=== PATIENT | female | born 1980 | race Two or more races ===

== ENCOUNTER → 2018-03-17 | Outpatient (CLI) | payer BC ==
--- NOTE | 2018-03-17 12:32 | RADIOLOGY REPORT (SQ) ---
EXAM DESCRIPTION: U/S ABDOMEN COMPLETE W/DOPPLER COMPLETED DATE/TIME: 03/17/2018 9:45 am REASON FOR STUDY: LLQ ABDOMINAL SWELLING, MASS, AND LUMP R19.04 LEFT LOWER QUADRANT ABDOMINAL SWELL ING, MASS AND LUMP COMPARISON: None. TECHNIQUE: Dynamic and static grayscale images acquired of the abdomen and recorded on PACS. Additio nal selected color Doppler and spectral images recorded. LIMITATIONS: Midline bowel gas, body habitus FINDINGS: PANCREAS: Not well seen LIVER: Difficult to visualize, normal size. No gross masses. LIVER VASCULATURE: Normal directional flow of the main portal vein and hepatic veins. GALLBLADDER: Stones are present without gallbladder wall thickening or pericholecystic fluid. ULTRASOUND-DETECTED HALL'S SIGN: Negative. INTRAHEPATIC DUCTS AND COMMON DUCT: Common bile duct not well seen. No gross intrahepatic biliary du ctal dilatation INFERIOR VENA CAVA: Not well seen AORTA: No aneurysm. RIGHT KIDNEY: Normal size. Normal echogenicity. No solid or suspicious masses. No hydronephros is. No calcifications. LEFT KIDNEY: Normal size. Normal echogenicity. No solid or suspicious masses. No hydronephrosi s. No calcifications. SPLEEN: Normal size. No solid masses. PERITONEAL AND PLEURAL SPACES: No ascites or effusions. OTHER: Patient indicated a left lower quadrant mass. Ultrasound of the left lower quadrant demonstra gracy a 12 cm hypoechoic solid mass. This is possibly uterine fibroid or ovarian mass. Findings were discussed with Jamila Mattson 0930 hours, 03/17/2018. CT will be performed for follow-up, with oral a nd IV contrast. IMPRESSION: Mass in the left lower quadrant at least 12 cm in diameter, question ovarian mass versus uterine fibroid versus pelvic adenopathy. TECHNICAL DOCUMENTATION: JOB ID: [id number] [employer]- All Rights Reserved Reading location - IP/workstation name: [email or web address]
--- NOTE | 2018-03-17 13:47 | RADIOLOGY REPORT (SQ) ---
EXAM DESCRIPTION: CT ABD/PELVIS WITH IV ORAL COMPLETED DATE/TIME: 03/17/2018 1:10 pm REASON FOR STUDY: LLQ ABDOMINAL MASS R19.04 LEFT LOWER QUADRANT ABDOMINAL SWELLING, MASS AND LUMP COMPARISON: None. TECHNIQUE: CT scan of the abdomen and pelvis performed using helical scanning technique with dynamic intravenous contrast injection. Patient drank oral contrast. Images reviewed with lung, soft tissue , and bone windows. Reconstructed coronal and sagittal MPR images reviewed. Delayed images for evalua tion of the urinary system also acquired. All images stored on PACS. All CT scanners at this facility use dose modulation, iterative reconstruction, and/or weight based d osing when appropriate to reduce radiation dose to as low as reasonably achievable (ALARA). [facility]: Dose Right [facility]: CareDose [facility]: Dose Right [facility]: Teradose 4D [facility]: [employer] CONTRAST TYPE AND DOSE: contrast/concentration: Isovue 370.00 mg/ml; Total Contrast Delivered: 100.0 ml; Total Saline Delivered: 39.1 ml RENAL FUNCTION: None required. The patient is less than 50 years old. RADIATION DOSE: CT Rad equipment meets quality standard of care and radiation dose reduction techniq ues were employed. CTDIvol: 22.4 - 23.4 mGy. DLP: 2337 mGy-cm.. LIMITATIONS: None. FINDINGS: LOWER CHEST: No significant findings. No nodules or infiltrates. LIVER: Normal size. No masses. No dilated ducts. SPLEEN: Normal size. No focal lesions. PANCREAS: No masses. No significant calcifications. No adjacent inflammation or peripancreatic fluid collections. Pancreatic duct not dilated. GALLBLADDER: No identified stones by CT criteria. No inflammatory changes to suggest cholecystitis. ADRENAL GLANDS: No significant masses or asymmetry. RIGHT KIDNEY AND URETER: No solid masses. No significant calcifications. No hydronephrosis or hyd roureter. LEFT KIDNEY AND URETER: No solid masses. No significant calcifications. No hydronephrosis or hydr oureter. AORTA AND VESSELS: No aneurysm. No dissection. Renal arteries, SMA, celiac without stenosis. RETROPERITONEUM: No retroperitoneal adenopathy, hemorrhage or masses. BOWEL AND PERITONEAL CAVITY: No masses or inflammatory changes. No free fluid or peritoneal masses. APPENDIX: Normal. PELVIS: Uterus is enlarged, 17 x 16 x 11 cm in size. In the leftward uterine fundus, a 14 x 11 cm fi broid is present which correlates with ultrasound earlier today. Ovaries not enlarged. No free pelv ic fluid. No pelvic adenopathy. No free fluid. Normal bladder. ABDOMINAL WALL: No masses. No hernias. BONES: No significant or acute findings. OTHER: No other significant finding. IMPRESSION: Enlarged fibroid uterus correlates with ultrasound from earlier today. No acute findings TECHNICAL DOCUMENTATION: JOB ID: [id number] Quality ID # [id number]: Final reports with documentation of one or more dose reduction techniques (e.g., Au tomated exposure control, adjustment of the mA and/or kV according to patient size, use of iterative reconstruction technique) 2010 [employer]- All Rights Reserved Reading location - IP/workstation name: [email or web address]
== END ==
LOC: RAD 08:55
PROVIDERS: ATTEND Physician Assistant
DX: D25.9 Leiomyoma of uterus, unspecified (principal)
CPT/HCPCS: 74177; 76700; 93976

== ENCOUNTER 2018-04-07 08:28 | Emergency (ER) | payer BC ==
[2018-04-07] MEDS ORDERED: OXYCODONE-ACETAMINOPHEN 5-325 MG TABLET PO ONE (09:07)
[2018-04-07] MEDS ORDERED: ONDANSETRON 4 MG TAB.RAPDIS PO ONE (09:07)
--- NOTE | 2018-04-07 09:09 | ER Document Report ---
ED Medical Screen (RME) - General Mode of Arrival: Ambulatory Information source: Patient TRAVEL OUTSIDE OF THE [place] IN LAST 30 DAYS: No - HPI Onset: This morning <VASU BEAVER - Last Filed: 04/07/18 09:08> <AUDREY COATS - Last Filed: 04/07/18 12:00> - General Chief Complaint: Abdominal Pain Stated Complaint: ABDOMINAL PAIN Time Seen by Provider: 04/07/18 09:02 Notes: Patient presents to the emergency department with complaints of severe abdominal pain and nausea that started this morning.. Reports right upper quadrant radiating down into her right pelvic region. Complains of nausea and severe pain. Denies vomiting diarrhea. Denies trauma. Patient reports history of fibroids and history of gallstones. I have greeted and performed a rapid initial assessment of this patient. A comprehensive ED assessment and evaluation of the patient, analysis of test results and completion of the medical decision making process will be conducted by additional ED providers. (VASU BEAVER) - Vital signs Vitals: Temp Pulse Resp BP Pulse Ox 98.7 F 78 16 136/74 H 99 04/07/18 08:43 04/07/18 08:43 04/07/18 08:43 04/07/18 08:43 04/07/18 08:43 Course - Laboratory Result Diagrams: 04/07/18 09:59 04/07/18 09:59 <AUDREY COATS - Last Filed: 04/07/18 12:00> - Vital Signs Vital signs: Temp Pulse Resp BP Pulse Ox 98.1 F 73 16 138/78 H 96 04/07/18 11:38 04/07/18 11:38 04/07/18 11:38 04/07/18 11:38 04/07/18 11:38 - Laboratory Laboratory results interpreted by me: 04/07/18 09:59 WBC 10.8 H Hgb 16.0 H Doctor's Discharge <VASU BEAVER - Last Filed: 04/07/18 09:08> <AUDREY COATS - Last Filed: 04/07/18 12:00> - Discharge Clinical Impression: Uterine fibroid Qualifiers: Uterine leiomyoma location: unspecified location Qualified Code(s): D25.9 - Leiomyoma of uterus, unspecified Condition: Stable Disposition: HOME, SELF-CARE Additional Instructions: rest, take meds as prescribed, return if worse Prescriptions: Diclofenac Sodium [Voltaren] 75 mg PO BID #14 tablet. Etodolac [Lodine] 400 mg PO BID #14 tablet Etodolac [Lodine] 400 mg PO BID #14 tablet Etodolac [Lodine] 400 mg PO BID #14 tablet Etodolac [Lodine] 400 mg PO BID #14 tablet Tramadol HCl 50 mg PO BID #14 tablet Referrals: DEEPTI YE PA [PHYSICIAN ADMINISTRATIVE SERVICES MANAGER] - Follow up as needed
--- NOTE | 2018-04-07 10:11 | RADIOLOGY REPORT (SQ) ---
EXAM DESCRIPTION: U/S ABDOMEN LIMITED W/O DOP COMPLETED DATE/TIME: 04/07/2018 9:58 am REASON FOR STUDY: ruq radiating to right pelvic COMPARISON: None. TECHNIQUE: Dynamic and static grayscale images acquired of the abdomen and recorded on PACS. Additio nal selected color Doppler and spectral images recorded. LIMITATIONS: None. FINDINGS: PANCREAS: No masses. No peripancreatic edema or fluid collections. LIVER: Enlarged, measuring 20 cm. Echotexture is coarse with increased echogenicity consistent with fatty infiltration. LIVER VASCULATURE: Normal directional flow of the main portal vein and hepatic veins. GALLBLADDER: Poorly distended. 7 mm nonshadowing echogenic mucosal lesion. ULTRASOUND-DETECTED HALL'S SIGN: Negative. INTRAHEPATIC DUCTS AND COMMON DUCT: CBD and intrahepatic ducts normal caliber. No filling defects. INFERIOR VENA CAVA: Normal flow. AORTA: No aneurysm. RIGHT KIDNEY: Normal size. Normal echogenicity. No solid or suspicious masses. No hydronephrosis. No calcifications. PERITONEAL AND RIGHT PLEURAL SPACE: No ascites or effusions. OTHER: No other significant finding. IMPRESSION: 1. 7 MM NONSHADOWING ECHOGENIC MUCOSAL LESION IN THE GALLBLADDER. THIS COULD BE A MUCOSAL POLYP, ADH ERENT SLUDGE, OR ADHERENT STONE. 2. FATTY INFILTRATION OF THE LIVER. OTHERWISE NORMAL RIGHT UPPER QUADRANT ULTRASOUND. TECHNICAL DOCUMENTATION: JOB ID: [id number]- All Rights Reserved Reading location - IP/workstation name: [email or web address]
--- NOTE | 2018-04-07 10:18 | RADIOLOGY REPORT (SQ) ---
EXAM DESCRIPTION: U/S NON OB PEL TV W/DOPPLER COMPLETED DATE/TIME: 04/07/2018 9:58 am REASON FOR STUDY: ruq radiating to right pelvic COMPARISON: None. TECHNIQUE: Dynamic and static grayscale images acquired of the pelvis via transvaginal approach and recorded on PACS. Additional selected color Doppler and spectral images recorded. LIMITATIONS: None. FINDINGS: UTERUS: Enlarged. Evaluation limited by shadowing from a large fibroid measuring 10.6 x 1 4 x 12.8 cm. ENDOMETRIAL STRIPE: Not able to be seen. CERVIX: 4 cm. No nabothian cysts. RIGHT OVARY AND DOPPLER: Normal size. No worrisome masses. 3.9 x 3.6 x 3.3 cm heterogeneous cystic m ass. Normal arterial vascular flow without evidence for torsion. LEFT OVARY AND DOPPLER: Ovary not seen. FREE FLUID: None noted. OTHER: No other significant finding. MEASUREMENTS: UTERUS: Not able to be measured. ENDOMETRIAL STRIPE: Not able to be measured. RIGHT OVARY: 3.7 x 4.4 x 5.7 cm LEFT OVARY: Ovary not seen. IMPRESSION: Limited study with large uterine fibroid. Heterogeneous cystic mass in the right ovary may represent a hemorrhagic cyst. TECHNICAL DOCUMENTATION: JOB ID: [id number] [employer]- All Rights Reserved Rev-01/13 Reading location - IP/workstation name: [email or web address]
[2018-04-07 10:39] LABS: ABSOLUTE BASOPHILS # (AUTO) 0.1 10^3/uL (0.0-0.2); ABSOLUTE EOSINOPHILS # (AUTO) 0.4 10^3/uL (0.0-0.6); ABSOLUTE MONOCYTES (AUTO) 1.2 10^3/uL (0.1-1.4); ABSOLUTE NEUT (AUTO) 6.2 10^3/uL (1.7-8.2); BASOPHILS % (AUTO) 0.8 % (0-2); EOSINOPHILS % (AUTO) 3.3 % (0-6); HEMATOCRIT 45.9 % (36.0-47.0); LYMPHOCYTES % (AUTO) 27.8 % (13-45); MEAN CORPUSCULAR HGB CONC 34.8 g/dL (32.0-36.0); MEAN CORPUSCULAR VOLUME 89 fl (80-97); MONOCYTES % (AUTO) 10.7 % (3-13); PLATELET COUNT 394 10^3/uL (150-450); RED BLOOD COUNT 5.15 10^6/uL (3.72-5.28); RED CELL DISTRIBUTION WIDTH 13.8 % (11.5-14.0); SEGMENTED NEUTROPHILS % (AUTO) 57.4 % (42-78); TOTAL CELLS COUNTED % (AUTO) 100 %; WHITE BLOOD COUNT 10.8 10^3/uL (4.0-10.5)
[2018-04-07 10:59] LABS: ALANINE AMINOTRANSFERASE 28 U/L (9-52); ALBUMIN 4.5 g/dL (3.5-5.0); ALKALINE PHOSPHATASE 61 U/L (38-126); ANION GAP 13 (5-19); ASPARTATE AMINO TRANSFERASE 18 U/L (14-36); BILIRUBIN,DIRECT 0.3 mg/dL (0.0-0.4); BILIRUBIN,TOTAL 0.4 mg/dL (0.2-1.3); BLOOD UREA NITROGEN 9 mg/dL (7-20); CALCIUM 9.7 mg/dL (8.4-10.2); CARBON DIOXIDE 22 mmol/L (22-30); CHLORIDE 105 mmol/L (98-107); GLUCOSE 108 mg/dL (75-110); LIPASE 131.7 U/L (23-300); POTASSIUM 4.6 mmol/L (3.6-5.0); SODIUM 139.8 mmol/L (137-145)
[2018-04-07 11:22] LABS: APPEARANCE,URINE CLEAR; BILIRUBIN,URINE NEGATIVE (NEGATIVE); COLOR,URINE YELLOW; GLUCOSE, URINE NEGATIVE (NEGATIVE); KETONES,URINE NEGATIVE (NEGATIVE); LEUKOCYTE ESTERASE,URINE NEGATIVE (NEGATIVE); NITRITE,URINE NEGATIVE (NEGATIVE); PROTEIN,URINE NEGATIVE (NEGATIVE); UROBILINOGEN,URINE NEGATIVE mg/dL (<2.0)
[2018-04-07 11:39] VITALS: BP 138/78
== END 2018-04-07 11:40 | disposition home or self-care (01) ==
LOC: ER 08:28
DX: D25.9 Leiomyoma of uterus, unspecified (principal); R11.0 Nausea; R10.11 Right upper quadrant pain; R10.2 Pelvic and perineal pain
CPT/HCPCS: 99284; 36415; 83690; 85025; 81025; 80053; 81001; 76705; 76830; 93976; S0119

== ENCOUNTER 2018-07-05 05:17 | Inpatient (IN) | payer BC ==
--- NOTE | 2018-07-03 12:27 | RADIOLOGY REPORT (SQ) ---
EXAM DESCRIPTION: CHEST PA/LATERAL COMPLETED DATE/TIME: 07/03/2018 12:11 pm REASON FOR STUDY: PRE-OP COMPARISON: None. EXAM PARAMETERS: NUMBER OF VIEWS: two views TECHNIQUE: Digital Frontal and Lateral radiographic views of the chest acquired. RADIATION DOSE: NA LIMITATIONS: none FINDINGS: LUNGS AND PLEURA: No opacities, masses or pneumothorax. No pleural effusion. MEDIASTINUM AND HILAR STRUCTURES: No masses or contour abnormalities. HEART AND VASCULAR STRUCTURES: Heart normal size. No evidence for failure. BONES: No acute findings. HARDWARE: None in the chest. OTHER: No other significant finding. IMPRESSION: NO SIGNIFICANT RADIOGRAPHIC FINDING IN THE CHEST. TECHNICAL DOCUMENTATION: JOB ID: [id number] [employer]- All Rights Reserved Reading location - IP/workstation name: [email or web address]
[2018-07-03 12:34] LABS: HEMATOCRIT 48.2 % (36.0-47.0); MEAN CORPUSCULAR HEMOGLOBIN 31.8 pg (27.0-33.4); MEAN CORPUSCULAR HGB CONC 35.3 g/dL (32.0-36.0); MEAN CORPUSCULAR VOLUME 90 fl (80-97); PLATELET COUNT 392 10^3/uL (150-450); RED BLOOD COUNT 5.34 10^6/uL (3.72-5.28); RED CELL DISTRIBUTION WIDTH 14.1 % (11.5-14.0); WHITE BLOOD COUNT 11.9 10^3/uL (4.0-10.5)
[2018-07-03 12:49] LABS: ANION GAP 14 (5-19); BLOOD UREA NITROGEN 6 mg/dL (7-20); CALCIUM 9.3 mg/dL (8.4-10.2); CARBON DIOXIDE 23 mmol/L (22-30); CHLORIDE 102 mmol/L (98-107); GLUCOSE 82 mg/dL (75-110); POTASSIUM 4.9 mmol/L (3.6-5.0); SODIUM 139.4 mmol/L (137-145)
[2018-07-03 13:09] LABS: APPEARANCE,URINE CLEAR; BILIRUBIN,URINE NEGATIVE (NEGATIVE); COLOR,URINE STRAW; GLUCOSE, URINE NEGATIVE (NEGATIVE); KETONES,URINE NEGATIVE (NEGATIVE); LEUKOCYTE ESTERASE,URINE NEGATIVE (NEGATIVE); NITRITE,URINE NEGATIVE (NEGATIVE); PROTEIN,URINE NEGATIVE (NEGATIVE); URINE SPECIFIC GRAVITY 1.003; UROBILINOGEN,URINE NEGATIVE mg/dL (<2.0)
--- NOTE | 2018-07-03 13:16 | EKG REPORT ---
SEVERITY:- NORMAL ECG - SINUS RHYTHM : Confirmed by: Morro Man MD 03-Jul-2018 13:15:48
[~2018-07-05 05:17] MED LIST: CEFAZOLIN 1 GM/D5W RTU 1 GM/50 ML RTUPB IV PRN; LACTATED RINGERS 1000 ML IV PRN; LIDOCAINE 0.5% INJ-PF (5 MG/ML) 50 ML SDV SUBCUT PRN
[2018-07-05] MEDS ORDERED: CEFAZOLIN 1 GM/D5W RTU 1 GM/50 ML RTUPB IV ONE (05:56)
[2018-07-05] MEDS ORDERED: BUPIVACAINE INJ/PF LIPOSOME/PF 266 MG/20 ML SDV ONE (06:41)
[2018-07-05] MEDS ORDERED: MIDAZOLAM 2 MG/2 ML INJ ONE ×2 (06:48→06:57)
[2018-07-05] MEDS ORDERED: FENTANYL CITRATE INJ/PF 250 MCG/5 ML AMPULE ONE ×2 (06:57→08:07)
[2018-07-05] MEDS ORDERED: MORPHINE SULFATE 10 MG/ML INJ ONE (06:57)
[2018-07-05] MEDS ORDERED: PROPOFOL INJ 200 MG/20 ML VIAL IV ONE (06:57)
[2018-07-05] MEDS ORDERED: ACETAMINOPHEN 1,000 MG/100 ML RTUPB IV ONE (06:57)
[2018-07-05] MEDS ORDERED: MEPERIDINE HCL/PF INJ 25 MG/1 ML DISP.SYRIN IV PRN (07:54)
[2018-07-05] MEDS ORDERED: OXYCODONE-ACETAMINOPHEN 5-325 MG TABLET PO PRN ×3 (07:54→09:02)
[2018-07-05] MEDS ORDERED: PROMETHAZINE HCL INJ 25 MG/1 ML VIAL IV PRN ×2 (07:54)
[2018-07-05] MEDS ORDERED: FENTANYL CITRATE INJ/PF 100 MCG/2 ML AMPUL IV PRN ×3 (07:54)
[2018-07-05] MEDS ORDERED: MORPHINE SULFATE 10 MG/ML INJ IV PRN (07:54)
[2018-07-05] MEDS ORDERED: DIPHENHYDRAMINE HCL 50 MG/ML VIAL IV PRN (07:54)
[2018-07-05] MEDS: FENTANYL CITRATE INJ/PF 100 MCG/2 ML AMPUL ONE ×2 (08:57→09:12)
[2018-07-05] MEDS ORDERED: MORPHINE SULFATE 10 MG/ML INJ INJ PRN ×2 (09:03)
[2018-07-05] MEDS ORDERED: MORPHINE SULFATE 10 MG/ML INJ IM PRN (09:04)
[2018-07-05] MEDS ORDERED: PROMETHAZINE HCL INJ 25 MG/1 ML VIAL IM PRN (09:04)
[2018-07-05] MEDS ORDERED: KETOROLAC TROMETHAMINE INJ/PF 30 MG/1 ML SDV ONE (09:13)
[2018-07-05] MEDS: OXYCODONE-ACETAMINOPHEN 5-325 MG TABLET PO PRN ×4 (10:29→22:41)
[2018-07-05] MEDS: CEFAZOLIN 1 GM/D5W RTU 1 GM/50 ML RTUPB IV SCH ×2 (11:41→17:43)
[2018-07-05] MEDS: IBUPROFEN 800 MG TABLET PO SCH ×2 (14:30→21:16)
--- NOTE | 2018-07-05 14:55 | OPERATIVE REPORT E ---
Operative Report NAME: ALEJANDRO COREY : 1980 AGE: 37Y DATE OF SURGERY: 07/05/2018 ROOM: 206 PREOPERATIVE DIAGNOSIS: Uterine leiomyoma, possible ovarian cyst. POSTOPERATIVE DIAGNOSIS: Uterine leiomyoma, normal ovaries. PROCEDURES: 1. Abdominal hysterectomy. 2. Bilateral salpingectomy. SURGEON: IAIN CERDA M.D. COMPLICATIONS: None. ANESTHESIA: General endotracheal. ESTIMATED BLOOD LOSS: 150 mL. COMPLICATIONS: None. INDICATIONS FOR PROCEDURE: The patient had an approximately 20-25 week size uterus, symptomatic with excessive___ bleeding. She desired definitive therapy. The usual risks of bleeding, infection, anesthesia, and damage to organs and tissues were discussed and the patient understood. A preoperative ultrasound demonstrated a simple ovarian cyst. DESCRIPTION OF PROCEDURE: The patient was taken to the operating room and placed in the modified lithotomy position. After adequate anesthesia ascertained, prepped and draped in the usual manner for a hysterectomy. Lauren catheter inserted. EUA performed. Surgical timeout was performed. She was then placed in supine position and through a midline incision and subsequently through fat and fascia, the peritoneum was entered without difficulty _extending____ above the umbilicus down to the symphysis pubis A self-retaining retractor was placed /examining the pelvis. With great difficulty the round ligaments were identified , cauterized and _pedicles exended to level of uterine arteries. Due to patient's short stature and size, the uterus was amputated and cervix oversewn. Ovaries were identified bilaterally / fallopian tubes excised. Good hemostasis was noted throughout. Exparel was used on the fascial layer. Needle and sponge counts correct. DICTATING PHYSICIAN: IAIN CERDA M.D. [id number] PHY#: [id number] ID: [id number] JOB#: [id number] ACCT: [id number] cc:IAIN CERDA M.D. > [facility]
[2018-07-05] MEDS ORDERED: ROCURONIUM BROMIDE INJ 50 MG/5 ML VIAL IV ONE (16:05)
[2018-07-05] MEDS ORDERED: DEXAMETHASONE SOD PHOSPHATE INJ 4 MG/1 ML VIAL ONE (16:05)
[2018-07-05] MEDS ORDERED: SUCCINYLCHOLINE CHLORIDE INJ 200 MG/10 ML VIAL ONE (16:05)
[2018-07-05] MEDS ORDERED: NEOSTIGMINE METHYLSULFATE 10 MG/10 ML VIAL ONE (16:05)
[2018-07-05] MEDS ORDERED: ONDANSETRON HCL INJ/PF 4 MG/2 ML SDV ONE (16:05)
[2018-07-05] MEDS ORDERED: GLYCOPYRROLATE 1 MG/5 ML SYRINGE ONE (16:05)
[2018-07-06] MEDS: OXYCODONE-ACETAMINOPHEN 5-325 MG TABLET PO PRN ×2 (02:54→06:56)
[2018-07-06] MEDS: IBUPROFEN 800 MG TABLET PO SCH (05:32)
[2018-07-06 05:40] LABS: MEAN CORPUSCULAR HEMOGLOBIN 31.6 pg (27.0-33.4); MEAN CORPUSCULAR HGB CONC 35.4 g/dL (32.0-36.0); MEAN CORPUSCULAR VOLUME 89 fl (80-97); PLATELET COUNT 313 10^3/uL (150-450); WHITE BLOOD COUNT 17.5 10^3/uL (4.0-10.5)
[2018-07-06 05:41] LABS: HEMOGLOBIN 14.9 g/dL (12.0-15.5)
[2018-07-06 08:43] VITALS: BP 118/68
--- NOTE | 2018-07-28 11:47 | DISCHARGE SUMMARY E ---
Discharge Summary NAME: ALEJANDRO COREY : 1980 AGE: 37Y ADMITTED: 07/05/2018 DISCHARGED: 07/06/2018 HOSPITAL COURSE: This is a 37-year-old female admitted for hysterectomy for a uterine leiomyoma. Preoperatively, it was felt that there was an ovarian cyst present for removal later. The patient underwent same-day admission 07/05/2018 for a 25-week size uterus. She underwent a supracervical hysterectomy and bilateral salpingectomy without complications. She was ambulatory regular diet, no evidence of DVT, and discharged hospital day 1 doing well, return to the office in 1 week. FINAL IMPRESSION: Uterine leiomyoma. PROCEDURE: Supracervical hysterectomy and bilateral salpingectomy. DICTATING PHYSICIAN: IAIN CERDA M.D. [id number] PHY#: [id number] ID: [id number] JOB#: [id number] ACCT: [id number] cc:IAIN CERDA M.D. >
== END 2018-07-06 09:00 | disposition home or self-care (01) | DRG 743 ==
LOC: UNDOADMIN 05:17 → INOR 05:17 → 2N 09:45 → INOR 09:45
PROVIDERS: ADMIT Specialist; ATTEND Specialist
PROC: 0UT70ZZ Resection of Bilateral Fallopian Tubes, Open Approach (ICD-10-PCS; 2018-07-05)
PROC: 0UT90ZL Resection of Uterus, Supracervical, Open Approach (ICD-10-PCS; principal; 2018-07-05 07:15)
DX: D25.9 Leiomyoma of uterus, unspecified (principal); N83.202 Unspecified ovarian cyst, left side; H40.9 Unspecified glaucoma
CPT/HCPCS: 36415; 71046; 80048; 81001; 81025; 840; 85027; 86850; 86900; 86901; 88307; 93005; 93010; 94799; C9290; J0131; J0330; J0690; J1100; J1885; J2250; J2270; J2405; J2704; J3010; J3490; J7120

== ENCOUNTER → 2018-12-05 | Outpatient (CLI) | payer BC ==
--- NOTE | 2018-12-05 10:26 | RADIOLOGY REPORT (SQ) ---
EXAM DESCRIPTION: C SP 4 OR 5 VIEWS COMPLETED DATE/TIME: 12/05/2018 10:16 am REASON FOR STUDY: PARESTHESIA OF SKIN M25.562 PAIN IN LEFT KNEE R20.2 PARESTHESIA OF SKIN COMPARISON: None. NUMBER OF VIEWS: Five views. TECHNIQUE: AP, lateral, obliques and odontoid radiographic images acquired of the cervical spine. LIMITATIONS: None. FINDINGS: MINERALIZATION: Normal. ALIGNMENT: Reversal of cervical curvature likely due to muscle spasm. VERTEBRAE: Vertebral bodies of normal height. DISCS: Mild anterior disc space loss of height at C4-5 and C5-6 FORAMINA: No osteophytes or foraminal narrowing. LATERAL AND POSTERIOR ELEMENTS: Facets, lateral masses and spinous processes without significant find ings. HARDWARE: None in the spine. SOFT TISSUES: No masses or calcifications. Lung apices clear. OTHER: No other significant finding. IMPRESSION: Reversal of cervical curvature likely due to muscle spasm. Suspect mild degenerative disc changes at C4-5 and C5-6 TECHNICAL DOCUMENTATION: JOB ID: [id number] [employer]- All Rights Reserved Reading location - IP/workstation name: [email or web address]
--- NOTE | 2018-12-05 10:26 | RADIOLOGY REPORT (SQ) ---
EXAM DESCRIPTION: KNEE LEFT 4 VIEWS COMPLETED DATE/TIME: 12/05/2018 10:16 am REASON FOR STUDY: PAIN IN LEFT KNEE M25.562 PAIN IN LEFT KNEE R20.2 PARESTHESIA OF SKIN COMPARISON: None. NUMBER OF VIEWS: Four views. TECHNIQUE: AP, lateral, and both oblique radiographic images acquired of the left knee. LIMITATIONS: None. FINDINGS: MINERALIZATION: Normal. BONES: No acute fracture or dislocation. No worrisome bone lesions. JOINT: No effusion. SOFT TISSUES: No soft tissue swelling. No radio-opaque foreign body. OTHER: No other significant finding. IMPRESSION: NEGATIVE STUDY OF THE LEFT KNEE. NO RADIOGRAPHIC EVIDENCE OF ACUTE INJURY. TECHNICAL DOCUMENTATION: JOB ID: [id number] [email or web address]- All Rights Reserved Reading location - IP/workstation name: [email or web address]
== END ==
LOC: OD 09:36
PROVIDERS: ATTEND Physician Assistant
DX: M50.322 Other cervical disc degeneration at C5-C6 level (principal); M25.562 Pain in left knee; R20.2 Paresthesia of skin
CPT/HCPCS: 72050

== ENCOUNTER → 2019-03-30 | Outpatient (CLI) | payer BC ==
--- NOTE | 2019-04-03 11:17 | Pulmonary Function Test ---
Pulmonary Function Test Date of Procedure:: 03/30/19 INDICATION:: Dyspnea Referring Provider: Dr. Borrero Topographical Field Assistant: Malorie Sam, MEDICAL RESEARCH ASSOCIATE, SAFETY SPEC - Report Spirometry: Spirometry: pre-FVC: 2.77 L 91% pre-FEV:1 2.42 L 93% pre-FEV1/FVC % 88 predicted 86 [id number]-[id number]% 3.42 L 111% Diffusion Capactity: DLCO: 17.5 84% DLCO/VA: 5.82 131% Impression: No obstructive ventilatory defect. Mild decrease in diffusion capacity.
== END ==
LOC: RT 07:21
PROVIDERS: ATTEND Internal Medicine Medical Oncology
DX: R06.02 Shortness of breath (principal)
CPT/HCPCS: 94010; 94729